=== PATIENT | female | born 1960 | race Caucasian/White ===

== ENCOUNTER 2021-06-24 14:55 | Emergency (ER) | payer OTHER ==
[~2021-06-24] VITALS: Ht 162.6 cm; Wt 77.1 kg
[2021-06-24 15:07] VITALS: BP 136/103
[2021-06-24] MEDS ORDERED: AMOXICILLIN875 MG PO (16:30)
[2021-06-24] MEDS ORDERED: NAPROSYN500 MG PO (16:30)
== END 2021-06-24 18:07 | disposition home or self-care (01) ==
LOC: ER 14:55
DX: M70.22 Olecranon bursitis, left elbow (principal); I10 Essential (primary) hypertension; M19.90 Unspecified osteoarthritis, unspecified site; M81.0 Age-related osteoporosis without current pathological fracture; Z90.49 Acquired absence of other specified parts of digestive tract